=== PATIENT | male | born 1975 | race Caucasian/White ===

== ENCOUNTER 2018-07-17 15:33 | Inpatient (IN) | payer OTHER ==
[2018-07-17 17:47] VITALS: BMI 25.0
--- NOTE | 2018-07-17 21:21 | HP ---
"CIWA Score Nausea/Vomitin-Mild Nausea/No Vomiting Muscle Tremors: 5 (Mod tremors w/ hands at rest and increase w/ arms extended) Anxiety: 1-Mildly Anxious Agitation: 1-Slight > Activity Paroxysmal Sweats: 3 (Facial moisture w/o beads) Orientation: 1-Uncertain about Date Tacttile Disturbances: 0-None Auditory Disturbances: 0-None Visual Disturbances: 0-None Headache: 2-Mild CIWA-Ar Total Score: 14 - Admission Criteria OASAS Guidelines: Admission for Medically Managed Detox: Requires at least one of the followin. CIWA greater than 12 2. Seizures within the past 24 hours 3. Delirium tremens within the past 24 hours 4. Hallucinations within the past 24 hours 5. Acute intervention needed for co occurring medical disorder 6. Acute intervention needed for co occurring psychiatric disorder 7. Severe withdrawal that cannot be handled at a lower level of care (continued vomiting, continued diarrhea, abnormal vital signs) requiring intravenous medication and/or fluids 8. Patient presents the following: CIWA greater than 12 Admission Criteria Met: Admission criteria met Admission ROS [facility] Chief Complaint: Here for alcohol withdrawal. Allergies/Adverse Reactions: Allergies Allergy/AdvReac Type Severity Reaction Status Date / Time No Known Allergies Allergy Verified 07/17/18 18:27 History of Present Illness: Here for support of withdrawal detox Nicotine use began at age 18. Alcohol use began at age 32. Heroin use began at age 32. Currently at [facility] x 3 years. ) States on Methadone dose is 190 mg PO Daily. Needs dosage verification. Denies hx blackouts, seizures, overdose. Hx: Hepatitis C; HTN (Takes CloNidine) Search Terms: Sergio Valentine, 1975 Search Date: 07/17/2018 09:13:43 PM The Drug Utilization Report below displays all of the controlled substance prescriptions, if any, that your patient has filled in the last twelve months. The information displayed on this report is compiled from pharmacy submissions to the Department, and accurately reflects the information as submitted by the pharmacies. This report was requested by: Tracee Bundy | Reference #: [id number] There are no results for the search terms that you entered. Exam Limitations: No Limitations - Ebola screening Have you traveled outside of the country in the last 21 days: No Have you had contact with anyone from an Ebola affected area: No Have you been sick,other than usual withdrawal symptoms: No Do you have a fever: No - Review of Systems Constitutional: Diaphoresis, Changes in sleep (Difficulty falling and staying asleep) EENT: reports: Dental Problems (No teeth. Denies difficulty chewing or swallowing) Respiratory: reports: No Symptoms reported Cardiac: reports: No Symptoms Reported GI: reports: Nausea : reports: Other (States decreased urination. Denies burning, pain, blood w/ urination.) Musculoskeletal: reports: Back Pain (Mid level back pain on occassion), Other ( Hx scoliosis) Integumentary: reports: Other (Psoriasis both shins) Neuro: reports: Headache, Tremors Endocrine: reports: No Symptoms Reported Hematology: reports: No Symptoms Reported Psychiatric: reports: Judgement Intact, Orientated x3, Agitated, Anxious, Depressed (Denies thoughts of harming self or others) Patient History - Patient Medical History Hx Anemia: No Hx Asthma: No Hx Chronic Obstructive Pulmonary Disease (COPD): No Hx Cancer: No Hx Cardiac Disorders: No Hx Congestive Heart Failure: No Hx Hypertension: No Hx Hypercholesterolemia: No Hx Pacemaker: No HX Cerebrovascular Accident: No Hx Seizures: No Hx Dementia: No Hx Diabetes: No Hx Gastrointestinal Disorders: No Hx Liver Disease: No Hx Genitourinary Disorders: No Hx Sexually Transmitted Disorders: No Hx Renal Disease (ESRD): No Hx Thyroid Disease: No Hx Human Immunodeficiency Virus (HIV): No Hx Hepatitis C: Yes Hx Depression: No Hx Suicide Attempt: No Hx Bipolar Disorder: No Hx Schizophrenia: No - Patient Surgical History Past Surgical History: No Hx Neurologic Surgery: No Hx Cataract Extraction: No Hx Cardiac Surgery: No Hx Lung Surgery: No Hx Breast Surgery: No Hx Breast Biopsy: No Hx Abdominal Surgery: No Hx Appendectomy: No Hx Cholecystectomy: No Hx Genitourinary Surgery: No Hx Section: No Hx Orthopedic Surgery: No Anesthesia Reaction: No - PPD History Previous Implant?: Yes Documented Results: Positive w/proof Date: 07/31/16 PPD to be Administered?: No - Smoking Cessation Smoking history: Current every day smoker Have you smoked in the past 12 months: Yes Aproximately how many cigarettes per day: 20 Hx Chewing Tobacco Use: No Initiated information on smoking cessation: Yes 'Breaking Loose' booklet given: 07/17/18 - Substance & Tx. History Hx Alcohol Use: Yes Hx Substance Use: Yes Substance Use Type: Alcohol, Heroin Hx Substance Use Treatment: Yes (detox, rehab, currently on a MMTP) - Substances Abused Alcohol Route: Oral Frequency: Daily Amount used: liquor- 1/2 liter, beer- 4 (40oz) Age of first use: 32 Date of Last Use: 07/16/18 Admission Physical Exam S - Vital Signs Vital Signs: Vital Signs - 24 hr 07/17/18 17:44 Temperature 97.9 F Pulse Rate 96 H Respiratory 18 Rate Blood Pressure 130/78 - Physical General Appearance: Yes: Nourished, Appropriately Dressed, Moderate Distress, Tremorous, Irritable, Sweating, Anxious HEENTM: Yes: EOMI, Hearing grossly Normal, Normocephalic, Normal Voice, BJORN, Pharynx Normal Respiratory: Yes: Chest Non-Tender, Lungs Clear, Normal Breath Sounds, No Respiratory Distress Neck: Yes: No masses,lesions,Nodules, Supple Breast: Yes: Breast Exam Deferred Cardiology: Yes: Regular Rhythm, Regular Rate, S1, S2, Murmur (Faint) Abdominal: Yes: Non Tender, Soft, Increased Bowel Sounds Genitourinary: Yes: Within Normal Limits Back: Yes: Other (Spinal curvature. Non-tender to palpation) Musculoskeletal: Yes: full range of Motion, Gait Steady Extremities: Yes: Normal Capillary Refill, Normal Range of Motion, Non-Tender, Tremors (tremors of hands at rest and increase when arms extended) Neurological: Yes: gyn physician II-XII NML intact, Alert, Motor Strength 5/5, Normal Mood /Affect, Normal Response Integumentary: Yes: Normal Color, Dry, Warm, Other (whitish scaley skin on both shins) Lymphatic: Yes: Within Normal Limits - Diagnostic (1) Alcohol dependence with uncomplicated withdrawal Current Visit: Yes Status: Acute (2) Hepatitis C Current Visit: No Status: Chronic Qualifiers: Viral hepatitis chronicity: chronic Hepatic coma status: without hepatic coma Qualified Code(s): B18.2 - Chronic viral hepatitis C (3) Methadone maintenance therapy patient Current Visit: Yes Status: Chronic (4) Nicotine dependence Current Visit: Yes Status: Chronic Qualifiers: Nicotine product type: cigarettes Substance use status: uncomplicated Qualified Code(s): F17.210 - Nicotine dependence, cigarettes, uncomplicated (5) Psoriasis Current Visit: Yes Status: Chronic (6) Scoliosis (and kyphoscoliosis), idiopathic Current Visit: Yes Status: Chronic Cleared for Admission [facility] - Detox or Rehab [facility] Level of Care: Medically Managed Detox Regimen/Protocol: Librium [facility] Breath Alcohol Content Breath Alcohol Content: 0 Urine Drug Screen - Results Drug Screen Negative: No Urine Drug Screen Results: BAR-Barbiturates, BZO-Benzodiazepines, MTD-Methadone"
[2018-07-17] MEDS ORDERED: ACETAMINOPHEN 325 MG TABLET (FP) PO PRN (21:43)
[2018-07-17] MEDS ORDERED: IBUPROFEN 400 MG TABLET (FP) PO PRN (21:43)
[2018-07-17] MEDS ORDERED: MAGNESIUM HYDROX 2400MG/30ML ORAL SUSPENSION 30 ML CUP PO PRN (21:43)
[2018-07-17] MEDS ORDERED: MENTHOL/PHENOL 1 EACH UD MM PRN (21:43)
[2018-07-17] MEDS ORDERED: MAGNESIUM CITRATE 300 ML BOTTLE PO PRN (21:43)
[2018-07-17] MEDS ORDERED: MAG HYDROX/AL HYDROX/SIMETH 30 ML UNIT-DOSE CUP PO PRN (21:43)
[2018-07-17] MEDS ORDERED: LOPERAMIDE HCL 2 MG CAPSULE PO PRN (21:43)
[2018-07-17] MEDS ORDERED: chlordiazePOXIDE HCL 25 MG CAPSULE PO PRN (21:43)
[2018-07-17] MEDS ORDERED: MELATONIN 5 MG TABLETS PO PRN (22:00)
[2018-07-17] MEDS ORDERED: chlordiazePOXIDE HCL 25 MG CAPSULE PO ONE (22:15)
[2018-07-17] MEDS: cloNIDine HCL 0.1 MG TABLET PO SCH (22:45)
[2018-07-17] MEDS: THIAMINE HCL 100 MG TABLET (FP) PO SCH (22:47)
[2018-07-17] MEDS: BETAMETHASONE VALERATE 0.1% CREAM 15 GM TUBE TP SCH (22:47)
[2018-07-17] MEDS: chlordiazePOXIDE HCL 25 MG CAPSULE PO SCH (22:48)
[2018-07-17] MEDS: MELATONIN 5 MG TABLETS PO PRN (23:10)
[2018-07-18 03:14] LABS: URINE APPEARANCE SLCLOUDY; URINE COLOR AMBER; URINE GLUCOSE (UA) NEGATIVE (NEGATIVE); URINE KETONE TRACE (NEGATIVE); URINE LEUK ESTERASE 1+ (NEGATIVE); URINE NITRITE NEGATIVE (NEGATIVE); URINE PROTEIN 2+ (NEGATIVE); URINE UROBILINOGEN 4.0 E.U/dl mg/dL (0.2-1.0)
[2018-07-18 03:19] LABS: EPI CELLS RARE /HPF (FEW); URINE MUCUS MANY
[2018-07-18] MEDS: chlordiazePOXIDE HCL 25 MG CAPSULE PO SCH ×4 (06:58→22:06)
--- NOTE | 2018-07-18 10:02 | PN ---
[facility] CIWA - CIWA Score Nausea/Vomitin-No Nausea/No Vomiting Muscle Tremors: 4-Moderate,w/Arms Extend Anxiety: 4-Mod. Anxious/Guarded Agitation: 4-Moderately Restless Paroxysmal Sweats: 3 Orientation: 0-Oriented Tacttile Disturbances: 0-None Auditory Disturbances: 0-None Visual Disturbances: 0-None Headache: 0-None Present CIWA-Ar Total Score: 15 B[facility] Progress Note (SOAP) Subjective: agitation anxiety restless sweats irritable interrupted sleep Objective: 07/18/18 10:01 Vital Signs Temperature 98.1 F 07/18/18 09:40 Pulse Rate 65 07/18/18 09:40 Respiratory Rate 18 07/18/18 09:40 Blood Pressure 112/65 07/18/18 09:40 O2 Sat by Pulse Oximetry (%) Laboratory Tests 07/17/18 23:54 Urine Color Sonia Urine Appearance Slcloudy Urine pH 5.0 Ur Specific [place] 1.032 Urine Protein 2+ H Urine Glucose (UA) Negative Urine Ketones Trace H Urine Blood Negative Urine Nitrite Negative Urine Bilirubin 2.0 Urine Urobilinogen 4.0 e.u/dl Ur Leukocyte Esterase 1+ H Urine WBC (Auto) 40 Urine RBC (Auto) 9 Ur Epithelial Cells Rare Urine Mucus Many rest of labs pending repeat u/a aaox3 ambulating no acute distress Assessment: 07/18/18 10:01 withdrawal sx Plan: continue detox increase fluids labs pending
[2018-07-18 10:03] LABS: HEMATOCRIT 37.1 % (35.4-49); MCH 30.3 pg (25.7-33.7); MCHC 35.1 g/dl (32.0-35.9); MEAN CELL VOLUME 86.4 fl (80-96); MEAN PLT VOLUME 8.4 fl (7.5-11.1); PLATELET COUNT 130 K/MM3 (134-434); RBC 4.29 M/mm3 (4.00-5.60); RDW 15.2 % (11.9-15.9); WHITE BLOOD COUNT 3.3 K/mm3 (4.0-10.0)
--- NOTE | 2018-07-18 10:34 | EKG ---
Test Reason : Blood Pressure : / mmHG Vent. Rate : 075 BPM Atrial Rate : 075 BPM P-R Int : 136 ms QRS Dur : 098 ms QT Int : 404 ms P-R-T Axes : 024 075 055 degrees QTc Int : 451 ms NORMAL SINUS RHYTHM NORMAL ECG NO PREVIOUS ECGS AVAILABLE Confirmed by Betito Gaffney MD ([id number]) on 07/18/2018 10:33:41 AM Referred By: Confirmed By:Betito Gaffney MD
[2018-07-18] MEDS ORDERED: METHADONE HCL 10 MG TABLET PO ONE (10:45)
[2018-07-18 10:46] LABS: ALBUMIN 3.8 g/dl (3.4-5.0); ALK PHOS 72 U/L (45-117); ANION GAP 7 MMOL/L (8-16); BILIRUBIN,TOTAL 0.7 mg/dL (0.2-1); BLOOD UREA NITROGEN 15 mg/dL (7-18); CALCIUM 9.2 mg/dL (8.5-10.1); CHLORIDE 105 mmol/L (98-107); CO2 31 mmol/L (21-32); CREATININE 0.8 mg/dL (0.55-1.3); GLUCOSE,RANDOM 87 mg/dL (74-106); POTASSIUM 5.1 mmol/L (3.5-5.1); SGOT/AST 51 U/L (15-37); SGPT/ALT 49 U/L (13-61); SODIUM 143 mmol/L (136-145); TOT PROT 6.7 g/dl (6.4-8.2)
[2018-07-18] MEDS ORDERED: METHADONE 160 MG, METHADONE 30 MG PO ONE (11:15)
[2018-07-18] MEDS: PRENATAL VITAMINS W/ FOLIC ACID TABLET (FP) PO SCH (11:39)
[2018-07-18] MEDS: BETAMETHASONE VALERATE 0.1% CREAM 15 GM TUBE TP SCH ×2 (11:39→22:06)
[2018-07-18] MEDS: NICOTINE 21 MG/24 HOURS TOPICAL PATCH TD SCH (11:39)
[2018-07-18] MEDS ORDERED: METHADONE HCL 40 MG DISPERSABLE TABLET ONE (11:41)
[2018-07-18] MEDS ORDERED: METHADONE HCL 10 MG TABLET ONE (11:41)
[2018-07-18] MEDS: cloNIDine HCL 0.1 MG TABLET PO SCH ×2 (11:44→22:06)
[2018-07-18] MEDS: MELATONIN 5 MG TABLETS PO PRN (22:05)
[2018-07-18] MEDS: THIAMINE HCL 100 MG TABLET (FP) PO SCH (22:05)
[2018-07-19] MEDS ORDERED: METHADONE HCL 40 MG DISPERSABLE TABLET ONE (05:41)
[2018-07-19] MEDS ORDERED: METHADONE HCL 10 MG TABLET ONE (05:41)
[2018-07-19] MEDS ORDERED: METHADONE HCL 40 MG DISPERSABLE TABLET PO SCH (06:00)
[2018-07-19] MEDS: METHADONE 160 MG, METHADONE 30 MG PO SCH (06:29)
[2018-07-19] MEDS: chlordiazePOXIDE HCL 25 MG CAPSULE PO SCH ×3 (06:32→17:52)
--- NOTE | 2018-07-19 10:11 | PN ---
[facility] CIWA - CIWA Score Nausea/Vomitin-No Nausea/No Vomiting Muscle Tremors: 3 Anxiety: 2 Agitation: 3 Paroxysmal Sweats: 2 Orientation: 0-Oriented Tacttile Disturbances: 0-None Auditory Disturbances: 0-None Visual Disturbances: 0-None Headache: 0-None Present CIWA-Ar Total Score: 10 S Progress Note (SOAP) Subjective: feeling tired/weak sweats anxiety Objective: 07/19/18 10:10 Vital Signs Temperature 98.2 F 07/19/18 09:53 Pulse Rate 85 07/19/18 09:53 Respiratory Rate 18 07/19/18 09:53 Blood Pressure 106/60 07/19/18 09:53 O2 Sat by Pulse Oximetry (%) Laboratory Tests 07/17/18 07/18/18 07/18/18 23:54 07:00 07:00 WBC 3.3 L RBC 4.29 Hgb 13.0 Hct 37.1 MCV 86.4 MCH 30.3 MCHC 35.1 RDW 15.2 Plt Count 130 L D MPV 8.4 Sodium 143 Potassium 5.1 Chloride 105 Carbon Dioxide 31 Anion Gap 7 L BUN 15 Creatinine 0.8 Creat Clearance w eGFR > 60 Random Glucose 87 Calcium 9.2 Total Bilirubin 0.7 AST 51 H ALT 49 Alkaline Phosphatase 72 Total Protein 6.7 Albumin 3.8 Urine Color Sonia Urine Appearance Slcloudy Urine pH 5.0 Ur Specific [place] 1.032 Urine Protein 2+ H Urine Glucose (UA) Negative Urine Ketones Trace H Urine Blood Negative Urine Nitrite Negative Urine Bilirubin 2.0 Urine Urobilinogen 4.0 e.u/dl Ur Leukocyte Esterase 1+ H Urine WBC (Auto) 40 Urine RBC (Auto) 9 Ur Epithelial Cells Rare Urine Mucus Many RPR Titer HIV 1&2 Antibody Screen HIV P24 Antigen 07/18/18 07/18/18 07:00 08:30 WBC RBC Hgb Hct MCV MCH MCHC RDW Plt Count MPV Sodium Potassium Chloride Carbon Dioxide Anion Gap BUN Creatinine Creat Clearance w eGFR Random Glucose Calcium Total Bilirubin AST ALT Alkaline Phosphatase Total Protein Albumin Urine Color Urine Appearance Urine pH Ur Specific [place] Urine Protein Urine Glucose (UA) Urine Ketones Urine Blood Urine Nitrite Urine Bilirubin Urine Urobilinogen Ur Leukocyte Esterase Urine WBC (Auto) Urine RBC (Auto) Ur Epithelial Cells Urine Mucus RPR Titer Nonreactive HIV 1&2 Antibody Screen Negative HIV P24 Antigen Negative repeat u/a aaox3 ambulating no acute distress Assessment: 07/19/18 10:11 withdrawal sx Plan: continue detox increase fluids pending u/a
[2018-07-19] MEDS: NICOTINE 21 MG/24 HOURS TOPICAL PATCH TD SCH (10:14)
[2018-07-19] MEDS: PRENATAL VITAMINS W/ FOLIC ACID TABLET (FP) PO SCH (10:14)
[2018-07-19] MEDS: cloNIDine HCL 0.1 MG TABLET PO SCH ×2 (10:14→22:17)
[2018-07-19] MEDS: BETAMETHASONE VALERATE 0.1% CREAM 15 GM TUBE TP SCH ×2 (10:14→22:57)
--- NOTE | 2018-07-19 11:34 | CONSULT ---
[facility] Psychiatric Consult - Data Date of interview: 07/19/18 Admission source: [facility] Identifying data: History of Present Illness: Here for support of withdrawal detox. Nicotine use began at age 18. Alcohol use began at age 32. Heroin use began at age 32. Currently at [facility] MMTP x 3 years. ([phone]) States on Methadone dose is 190 mg PO Daily. Needs dosage verification. Denies hx blackouts, seizures, overdose. Hx: Hepatitis C; HTN (Takes CloNidine) Substance Abuse History: MMTP 190 mg per day. - Smoking Cessation. Smoking history: Current every day smoker. Have you smoked in the past 12 months: Yes. Aproximately how many cigarettes per day: 20. Hx Chewing Tobacco Use: No. Initiated information on smoking cessation: Yes. 'Breaking Loose' booklet given : 07/17/18. - Substance & Tx. History. Hx Alcohol Use: Yes. Hx Substance Use : Yes. Substance Use Type: Alcohol, Heroin. Hx Substance Use Treatment: Yes ( detox, rehab, currently on a MMTP). - Substances Abused. Alcohol. Route: Oral. Frequency: Daily. Amount used: liquor- 1/2 liter, beer- 4 (40oz). Age of first use: 32. Date of Last Use: 07/16/18 Medical History: Hep C, Psoriasis, Scoliosis Psychiatric History: Patient reports anxiety and depression, denies spsychiatric hospitalization history, denies suicidal and homicidal history. Physical/Sexual Abuse/Trauma History: Denies Additional Comment: Observation. [facility] Care Protocol Mental Status Exam - Mental Status Exam Alert and Oriented to: Person Cognitive Function: Fair Patient Appearance: Unkempt Mood: Sad Affect: Flat Patient Behavior: Sedated Speech Pattern: Delayed Voice Loudness: Mildly Soft/Quiet Thought Process: Goal Oriented Thought Disorder: Being Controlled Hallucinations: Denies Suicidal Ideation: Denies Homicidal Ideation: Denies Insight/Judgement: Fair Sleep: Difficulty falling asleep Appetite: Weight loss Muscle strength/Tone: Normal Gait/Station: Normal Additional Comments: Observation. [facility] Care Protocol Psychiatric Findings - Problem List ([place] 1, 2,3) (1) Alcohol dependence with uncomplicated withdrawal Current Visit: Yes Status: Acute (2) Methadone maintenance therapy patient Current Visit: Yes Status: Chronic (3) Nicotine dependence Current Visit: Yes Status: Chronic Qualifiers: Nicotine product type: cigarettes Substance use status: uncomplicated Qualified Code(s): F17.210 - Nicotine dependence, cigarettes, uncomplicated (4) Psoriasis Current Visit: Yes Status: Chronic (5) Scoliosis (and kyphoscoliosis), idiopathic Current Visit: Yes Status: Chronic (6) Hepatitis C Current Visit: No Status: Chronic Qualifiers: Viral hepatitis chronicity: chronic Hepatic coma status: without hepatic coma Qualified Code(s): B18.2 - Chronic viral hepatitis C - Initial Treatment Plan Initial Treatment Plan: Observation. [facility] Care Protocol
[2018-07-19 16:21] LABS: URINE APPEARANCE SLCLOUDY; URINE BILIRUBIN NEGATIVE (<2.0 mg/dL); URINE COLOR AMBER; URINE GLUCOSE (UA) NEGATIVE (NEGATIVE); URINE KETONE NEGATIVE (NEGATIVE); URINE LEUK ESTERASE 1+ (NEGATIVE); URINE NITRITE NEGATIVE (NEGATIVE); URINE PROTEIN NEGATIVE (NEGATIVE); URINE UROBILINOGEN 4.0 E.U/dl mg/dL (0.2-1.0)
[2018-07-19 16:23] LABS: CALCIUM OXALATE CRYSTALS MODERATE /hpf (NONE SEEN); EPI CELLS RARE /HPF (FEW); URINE HYALINE CAST 9 /lpf; URINE MUCUS MODERATE
[2018-07-19] MEDS: chlordiazePOXIDE 5 MG CAPSULE PO SCH (22:17)
[2018-07-19] MEDS: THIAMINE HCL 100 MG TABLET (FP) PO SCH (22:17)
[2018-07-19] MEDS: MELATONIN 5 MG TABLETS PO PRN (22:18)
[2018-07-20] MEDS ORDERED: METHADONE HCL 40 MG DISPERSABLE TABLET ONE (05:16)
[2018-07-20] MEDS ORDERED: METHADONE HCL 10 MG TABLET ONE (05:17)
[2018-07-20] MEDS: chlordiazePOXIDE 5 MG CAPSULE PO SCH ×3 (05:38→17:51)
[2018-07-20] MEDS: METHADONE 160 MG, METHADONE 30 MG PO SCH (05:39)
--- NOTE | 2018-07-20 09:22 | PN ---
[facility] Progress Note (SOAP) Subjective: sweats agitation interrupted sleep Objective: 07/20/18 09:21 Vital Signs Temperature 97.6 F 07/20/18 06:00 Pulse Rate 62 07/20/18 06:00 Respiratory Rate 18 07/20/18 06:00 Blood Pressure 124/76 07/20/18 06:00 O2 Sat by Pulse Oximetry (%) Laboratory Tests 07/17/18 07/18/18 07/18/18 23:54 07:00 07:00 WBC 3.3 L RBC 4.29 Hgb 13.0 Hct 37.1 MCV 86.4 MCH 30.3 MCHC 35.1 RDW 15.2 Plt Count 130 L D MPV 8.4 Sodium 143 Potassium 5.1 Chloride 105 Carbon Dioxide 31 Anion Gap 7 L BUN 15 Creatinine 0.8 Creat Clearance w eGFR > 60 Random Glucose 87 Calcium 9.2 Total Bilirubin 0.7 AST 51 H ALT 49 Alkaline Phosphatase 72 Total Protein 6.7 Albumin 3.8 Urine Color Sonia Urine Appearance Slcloudy Urine pH 5.0 Ur Specific [place] 1.032 Urine Protein 2+ H Urine Glucose (UA) Negative Urine Ketones Trace H Urine Blood Negative Urine Nitrite Negative Urine Bilirubin 2.0 Urine Urobilinogen 4.0 e.u/dl Ur Leukocyte Esterase 1+ H Urine WBC (Auto) 40 Urine RBC (Auto) 9 Ur Epithelial Cells Rare Calcium Oxalate Crystal Hyaline Casts Urine Mucus Many RPR Titer HIV 1&2 Antibody Screen HIV P24 Antigen 07/18/18 07/18/18 07/19/18 07:00 08:30 13:20 WBC RBC Hgb Hct MCV MCH MCHC RDW Plt Count MPV Sodium Potassium Chloride Carbon Dioxide Anion Gap BUN Creatinine Creat Clearance w eGFR Random Glucose Calcium Total Bilirubin AST ALT Alkaline Phosphatase Total Protein Albumin Urine Color Sonia Urine Appearance Slcloudy Urine pH 6.0 Ur Specific [place] 1.023 Urine Protein Negative Urine Glucose (UA) Negative Urine Ketones Negative Urine Blood Negative Urine Nitrite Negative Urine Bilirubin Negative Urine Urobilinogen 4.0 e.u/dl Ur Leukocyte Esterase 1+ H Urine WBC (Auto) 16 Urine RBC (Auto) 5 Ur Epithelial Cells Rare Calcium Oxalate Crystal Moderate Hyaline Casts 9 Urine Mucus Moderate RPR Titer Nonreactive HIV 1&2 Antibody Screen Negative HIV P24 Antigen Negative repeated u/a indicate WBC improving but moderate amt of mucus. bactrim ds x 3 days ordered aaox3 ambulating no acute distress Assessment: 07/20/18 09:22 mild withdrawals Plan: continue detox increase fluids ABX ordered d/c in am
[2018-07-20] MEDS: PRENATAL VITAMINS W/ FOLIC ACID TABLET (FP) PO SCH (10:03)
[2018-07-20] MEDS: BETAMETHASONE VALERATE 0.1% CREAM 15 GM TUBE TP SCH ×2 (10:03→23:17)
[2018-07-20] MEDS: cloNIDine HCL 0.1 MG TABLET PO SCH ×2 (10:03→22:29)
[2018-07-20] MEDS: NICOTINE 21 MG/24 HOURS TOPICAL PATCH TD SCH (10:05)
[2018-07-20] MEDS: SULFAMETHOXAZOLE/TRIMETHOPRIM 800MG/160MG D.S. TABLET PO SCH ×2 (10:05→22:28)
[2018-07-20] MEDS: chlordiazePOXIDE HCL 10 MG CAPSULE PO SCH (22:28)
[2018-07-20] MEDS: MELATONIN 5 MG TABLETS PO PRN (22:29)
[2018-07-20] MEDS: THIAMINE HCL 100 MG TABLET (FP) PO SCH (22:29)
[2018-07-21] MEDS ORDERED: METHADONE HCL 40 MG DISPERSABLE TABLET ONE (03:52)
[2018-07-21] MEDS ORDERED: METHADONE HCL 10 MG TABLET ONE (03:53)
[2018-07-21] MEDS: METHADONE 160 MG, METHADONE 30 MG PO SCH (05:42)
[2018-07-21] MEDS: chlordiazePOXIDE HCL 10 MG CAPSULE PO SCH (05:42)
--- NOTE | 2018-07-21 08:36 | DS ---
[facility] Detox Discharge Summary Admission Date: 07/17/18 Discharge Date: 07/21/18 - History Present History: Alcohol Dependence, MMTP - Physical Exam Results Vital Signs: Vital Signs Temperature 97.5 F L 07/21/18 06:00 Pulse Rate 58 L 07/21/18 06:00 Respiratory Rate 18 07/21/18 06:00 Blood Pressure 111/66 07/21/18 06:00 O2 Sat by Pulse Oximetry (%) - Treatment Hospital Course: Detox Protocol Followed, Detoxed Safely, Responded well, Discharged Condition Good, Rehab Referral Accepted - Medication Discharge Medications: Ambulatory Orders Methadone [Dolophine -] 190 mg PO DAILY 07/17/18 cloNIDine HCL [Catapres -] 0.1 mg PO BID 07/17/18 - Diagnosis (1) Alcohol dependence with uncomplicated withdrawal Current Visit: Yes Status: Chronic (2) Methadone maintenance therapy patient Current Visit: Yes Status: Chronic (3) Nicotine dependence Current Visit: Yes Status: Chronic Qualifiers: Nicotine product type: cigarettes Substance use status: uncomplicated Qualified Code(s): F17.210 - Nicotine dependence, cigarettes, uncomplicated (4) Psoriasis Current Visit: Yes Status: Chronic (5) Scoliosis (and kyphoscoliosis), idiopathic Current Visit: Yes Status: Chronic (6) Hepatitis C Current Visit: No Status: Chronic Qualifiers: Viral hepatitis chronicity: chronic Hepatic coma status: without hepatic coma Qualified Code(s): B18.2 - Chronic viral hepatitis C - AMA Did Patient Leave Against Medical Advice: No ([facility])
[2018-07-21] MEDS: PRENATAL VITAMINS W/ FOLIC ACID TABLET (FP) PO SCH (10:02)
[2018-07-21] MEDS: BETAMETHASONE VALERATE 0.1% CREAM 15 GM TUBE TP SCH (10:02)
[2018-07-21] MEDS: cloNIDine HCL 0.1 MG TABLET PO SCH (10:03)
[2018-07-21] MEDS: SULFAMETHOXAZOLE/TRIMETHOPRIM 800MG/160MG D.S. TABLET PO SCH (10:03)
[2018-07-21] MEDS: NICOTINE 21 MG/24 HOURS TOPICAL PATCH TD SCH (10:03)
[2018-07-21 14:12] VITALS: BP 133/86; PULSE 88; TEMP 99.1
== END 2018-07-21 15:03 | disposition home or self-care (01) | DRG 773 ==
LOC: YASAS 15:33 → Y6N 22:01
PROVIDERS: ADMIT Neuromusculoskeletal Medicine & OMM; ATTEND Neuromusculoskeletal Medicine & OMM
PROC: HZ2ZZZZ Detoxification Services for Substance Abuse Treatment (ICD-10-PCS; principal; 2018-07-17)
DX: F10.230 Alcohol dependence with withdrawal, uncomplicated (principal); F11.20 Opioid dependence, uncomplicated; F17.210 Nicotine dependence, cigarettes, uncomplicated; I10 Essential (primary) hypertension; B18.2 Chronic viral hepatitis C; L40.9 Psoriasis, unspecified; M41.20 Other idiopathic scoliosis, site unspecified
CPT/HCPCS: 36415; 71046-TC-FY; 80053; 81003; 81015; 85027; 86593; 87389; 93005; 93010; J0735

== ENCOUNTER 2019-01-11 17:59 | Inpatient (IN) | payer OTHER | END 2019-01-25 10:20 | disposition home or self-care (01) | LOC: YASAS 17:59 → Y5N 22:53 ==